=== PATIENT | male | born 1985 | race Hispanic/Latino ===

== ENCOUNTER 2025-05-15 12:55 | Emergency (ER) | payer BC ==
[~2025-05-15] VITALS: Ht 185.4 cm; Wt 114.8 kg
[2025-05-15 13:27] LABS: IMMATURE GRANULOCYTE ABSOLUTE 0.02 K/uL (0-1); NUCLEATED RED BLOOD CELLS 0.0 % (0.0-0.19); PLATELET COUNT (AUTO) 227 K/uL (130-400); RED BLOOD CELL COUNT(AUTO) 6.04 MIL/uL (4.50-6.20); RED CELL DISTRIBUTION WIDTH 13.3 % (11.0-15.5); WHITE BLOOD COUNT (AUTO) 6.8 K/uL (4.8-10.8)
[2025-05-15 13:31] VITALS: BP 155/78; PULSE 65; RESP 18; TEMP 98.6; O2SAT 97
[2025-05-15] MEDS: 0.9%NACL 1000ML 1,000 ML IV STA (13:32)
[2025-05-15 13:34] LABS: CREATININE 0.9 mg/dL (0.5-1.3); GLOMERULAR FILTR. RATE CALC 112.0 mL/min (>90); GLUCOSE,RANDOM 96.0 mg/dL (70-105); SODIUM SERUM 137.0 mmol/L (136-145); UREA NITROGEN, BLOOD 17.0 mg/dL (7-18)
[2025-05-15 13:40] LABS: CREATINE KINASE, TOTAL 287.0 U/L (21-232)
[2025-05-15 13:54] LABS: APPEARANCE,URINE CLEAR (CLEAR); GLUCOSE, URINE (UA) NEGATIVE (NEGATIVE); LEUKOCYTE ESTERASE ,URINE NEGATIVE Leu/uL (NEGATIVE); NITRATE,URINE NEGATIVE (NEGATIVE); OCCULT BLOOD,URINE NEGATIVE (NEGATIVE)
[2025-05-15 14:01] LABS: AMPHET/METH SCREEN,URINE NEGATIVE (NEGATIVE); BARBITURATE SCREEN, URINE NEGATIVE (NEGATIVE); CANNABINOID SCREEN,URINE NEGATIVE (NEGATIVE); COCAINE SCREEN,URINE NEGATIVE (NEGATIVE)
[2025-05-15 14:08] LABS: ADD UA MICROSCOPIC NO
--- NOTE | 2025-05-15 14:22 | ERN ---
ED Note History of Present Illness Stated Complaint: ARM TINGLING Chief Complaint: Other Problems Time Seen by MD: 12:58 Time Seen by Midlevel: 13:00 Dictation: 39 Year old male coming in with complaints of tingling sensation to the entire body including mouth. Patient states he had an episode like this last week was seen at another hospital and was told it was paresthesias. Patient states he works out in the sun and wants to make sure he is not dehydrated. Denies any drug use or alcohol use. Denies any unilateral weakness, numbness, tingling. Allergies: Coded Allergies: morphine (Unverified Allergy, Unknown, 05/15/25) Past Medical History Past Medical History: No Pertinent History Surgical History: None Review of System Dictation Constitutional: Negative for fever,chills, and weight loss Eyes: Negative for injury, pain,redness, and discharge ENT: Negative for injury,pain or swelling Cardiovascular: Negative for chest pain, palpitations, and edema Respiratory: Negative for shortness of breath, cough, and wheezing, Abdomen/GI: Negative for abdominal pain, nausea, vomiting, diarrhea, and constipation Back: Negative for injury and pain : Negative for injury, bleeding and discharge MS/Extremity: Negative for injury and deformity Skin: Negative for rash, and discoloration Neuro: Negative for headache, weakness, numbness, tingling, and seizure Psych: Negative for suicide ideation, homicidal ideation, and hallucinations Review of Systems: was completed Initial Vital Sign VS Vital Signs Date Time Temp Pulse Resp B/P (MAP) Pulse Ox O2 Delivery O2 Flow Rate FiO2 05/15/25 12:59 98.6 65 18 169/96 98 05/15/25 13:31 Room Air* 0 21 Physical Exam Dictation General: awake, alert, NAD Head/Face: Normocephalic, atraumatic Eyes: PERRL, EOMI, vision at baseline ENT: oral cavity clear, TMs clear, no signs of infection Neck: Trachea midline, supple, no nuchal rigidity Cardiovascular: RRR, normal S1/S2, No MRGs, no JVD Respiratory: CTAB, no respiratory distress, No rales or wheezes Abdomen: Soft, non-tender, non-distended, normal bowel sounds, no guarding or rebound. Skin: Warm, dry, normal turgor, no rash MS/Extremity: Pulses equal, no cyanosis, neurovascular intact, FROM Neuro: COAx4, GCS 15, strength 5/5, CN 2-12 intact, normal cerebellar exam, normal gait, Psych: Normal behavior, mood, and affect normal Results (Laboratory/Radiology) Laboratory/Radiology Laboratory Tests Test 05/15/25 13:18 05/15/25 13:35 White Blood Count 6.8 K/uL (4.8-10.8) Red Blood Count 6.04 MIL/uL (4.50-6.20) Hemoglobin 17.1 g/dL (14.0-18.0) Hematocrit 51.5 % (42-54) Mean Corpuscular Volume 85.3 fL (79-99) Mean Corpuscular Hemoglobin 28.3 pg (27.0-33.0) Mean Corpuscular Hemoglobin Concent 33.2 g/dL (32.0-36.0) Red Cell Distribution Width 13.3 % (11.0-15.5) Platelet Count 227 K/uL (130-400) Mean Platelet Volume 11.7 fL (7.5-10.5) H Immature Granulocyte % (Auto) 0.3 % (0-1) Neutrophils (%) (Auto) 60.3 % (40.0-77.0) Lymphocytes (%) (Auto) 27.8 % (21.0-51.0) Monocytes (%) (Auto) 8.7 % (3.0-13.0) Eosinophils (%) (Auto) 2.5 % (0.0-8.0) Basophils (%) (Auto) 0.4 % (0.0-5.0) Neutrophils # (Auto) 4.1 K/uL (1.8-7.7) Lymphocytes # (Auto) 1.9 K/uL (1.0-4.8) Monocytes # (Auto) 0.6 K/uL (0.1-1.0) Eosinophils # (Auto) 0.17 K/uL (0.00-0.70) Basophils # (Auto) 0.03 K/uL (0.00-0.20) Absolute Immature Granulocyte (auto 0.02 K/uL (0-1) Nucleated Red Blood Cells 0.0 % (0.0-0.19) Sodium Level 137 mmol/L (136-145) Potassium Level 3.8 mmol/L (3.5-5.1) Chloride Level 100 mmol/L (101-111) L Carbon Dioxide Level 31 mmol/L (21-32) Blood Urea Nitrogen 17 mg/dL (7-18) Creatinine 0.9 mg/dL (0.5-1.3) Glomerular Filtration Rate Calc 112 mL/min (>90) Random Glucose 96 mg/dL (70-105) Total Calcium 9.5 mg/dL (8.5-10.1) Total Creatine Kinase 287 U/L (21-232) H Urine Color LIGHT-YELLOW (YELLOW) Urine Appearance CLEAR (CLEAR) Urine pH 5.5 (5.0-8.0) Urine Specific [place] 1.024 (1.001-1.031) Urine Protein NEGATIVE mg/dL (NEGATIVE) Urine Glucose (UA) NEGATIVE mg/dL (NEGATIVE) Urine Ketones NEGATIVE mg/dL (NEGATIVE) Urine Occult Blood NEGATIVE (NEGATIVE) Urine Nitrate NEGATIVE (NEGATIVE) Urine Bilirubin NEGATIVE mg/dL (NEGATIVE) Urine Urobilinogen 0.2 mg/dL (0.2-1.0) Urine Leukocyte Esterase NEGATIVE Kim/uL Urine Opiates Screen NEGATIVE (NEGATIVE) Urine Barbiturates Screen NEGATIVE (NEGATIVE) Urine Phencyclidine Screen NEGATIVE (NEGATIVE) Urine Amphetamines Screen NEGATIVE (NEGATIVE) Urine Benzodiazepines Screen NEGATIVE (NEGATIVE) Urine Cocaine Screen NEGATIVE (NEGATIVE) Urine Marijuana (THC) Screen NEGATIVE (NEGATIVE) Labs Reviewed?: Yes ED Course ED Course Orders Procedure Category Date Status Time Cbc With Differential LAB 05/15/25 Complete 13:03 Basic Metabolic Panel LAB 05/15/25 Complete 13:03 Urinalysis Profile LAB 05/15/25 Complete 13:03 Drug Screen Urine LAB 05/15/25 Complete 13:03 0.9%Nacl 1000ml (Ns PHA 05/15/25 In Process 1000ml) 13:03 Hydroxyzine 50mg Vial PHA 05/15/25 Complete (Atarax 50mg Inj) 13:03 Creatine Kinase, Total LAB 05/15/25 Complete 13:03 Current Medications Medications (Trade) Dose Ordered Sig/Markie Route PRN Reason Start Time Stop Time Status Last Admin Dose Admin Hydroxyzine HCl (ATArax 50MG INJ) 50 mg ONCE STAT IM 05/15/25 13:03 05/15/25 13:06 DC 05/15/25 13:34 Sodium Chloride 1,000 ml @ 100 mls/hr Q10H STAT IV 05/15/25 13:03 05/15/25 23:02 05/15/25 13:32 Vital Signs Date Time Temp Pulse Resp B/P (MAP) Pulse Ox O2 Delivery O2 Flow Rate FiO2 05/15/25 13:31 98.6 65 18 155/78 97 Room Air* 0 21 05/15/25 12:59 98.6 65 18 169/96 98 Medical Decision Making MDM MDM: 39 Year old male coming in with complaints of tingling sensation to the entire body including mouth. Patient states he had an episode like this last week was seen at another hospital and was told it was paresthesias. Patient states he works out in the sun and wants to make sure he is not dehydrated. Denies any drug use or alcohol use. Denies any unilateral weakness, numbness, tingling. Blood work unremarkable. CK is in the 200s. Patient received fluids and Vistaril. Patient's he has after that he feels better. Discussed with the patient he needs to follow up outpatient regarding the diagnosis that was made and return to the hospital if any symptoms worsen. Patient verbalized understanding, answered all questions. Differential diagnosis: Rhabdomyolysis, electrolyte abnormality, dehydration, drug use Rationale: Tests considered and ordered secondary to shared decision making include: Previous outside records reviewed: Old ER visits. Risk of complication and/or morbidity or mortality of patient management: None Medications-Per medication reconciliation Need for hospitalization: Patient does not meet criteria for hospitalization. Need for emergency major/minor surgery: No There are no social concerns with this patient. Prescription drug management Prescriptions will include symptomatic care Patient's prior external medical records from other ER visits were reviewed by me as indicated. Prior testing and results from previous visits were reviewed. Prior tests were taken into account with medical decision making and resource utilization, independent historian/historians were used to obtain complete medical history. I independently interpreted the test that were performed, results were reviewed by me and considered findings on radiology if ordered. Medical management and examination interpretation discussions were had by me wit h other qualified healthcare professionals as indicated for the patient's care. DX & DISP Disposition: Discharge Departure Impression: Primary Impression: Paresthesias Condition: Stable Additional Instructions: Please follow up with your primary care provider. Return to the hospital if you have any worsening symptoms. Referrals: SELF,REFERRAL (PCP) Time of Disposition: 14:18 I have reviewed the case, and I agree with, Diagnosis and Plan UGO CASTILLO NP May 15, 2025 14:22
--- NOTE | 2025-05-15 14:36 | NUR ---
pt discharged. paperwork given
== END 2025-05-15 14:44 | disposition home or self-care (01) ==
LOC: EDH 12:55
DX: R20.2 Paresthesia of skin (principal); Z88.5 Allergy status to narcotic agent
CPT/HCPCS: 99284; 82550; 80048; 80305; 85025; 36415; 96372; 81003; J3410; J7030